=== PATIENT | male | born 1990 | race Caucasian/White ===

== ENCOUNTER 2018-06-13 10:48 | Emergency (ER) | payer OTHER ==
[~2018-06-13] VITALS: Ht 182.9 cm; Wt 90.7 kg
[~2018-06-13 10:48] MED LIST: MOTRIN800 MG PO; PERCOCET 325 MG1 TA2 PO
--- NOTE | 2018-06-13 11:03 | ED MVC/FALL/TRAUMA COMPLAINT ---
History of Present Illness General Chief Complaint: General Adult Stated Complaint: BIBA ?SHOULDER DISLOCATION Source: patient Exam Limitations: no limitations Vital Signs & Intake/Output Vital Signs & Intake/Output Vital Signs Date Time Temp Pulse Resp B/P B/P Pulse O2 O2 Flow FiO2 Mean Ox Delivery Rate 06/13 1305 97.1 71 15 125/75 99 Room Air Room Air 06/13 1250 97.2 67 15 124/79 98 Room Air Room Air 06/13 1212 63 15 147/92 100 Nasal 2.0L Cannula 06/13 1208 55 15 143/92 100 Nasal 2.0L Cannula 06/13 1152 52 20 151/84 99 Nasal 2.0L Cannula 06/13 1135 74 20 143/98 96 Room Air 06/13 1107 Room Air Room Air 06/13 1052 97.1 71 20 143/101 98 Room Air Allergies Coded Allergies: No Known Allergies (06/13/18) Reconcile Medications Ibuprofen (Motrin) 800 MG TAB 1 TAB PO TID PAIN OXYCODONE HCL/ACETAMINOPHEN (Percocet 5-325 MG Tablet) 325 MG/5 MG TAB 1-2 TAB PO Q4-6 PRN PRN PAIN Triage Nurses Notes Reviewed? yes HPI: 27-year-old male with no significant past medical history presented to the emergency department for a fall leading to right shoulder severe pain and dislocation 1 day. Patient was in his usual state of health when he had a fall at work. He ended up dislocating his right shoulder and severe pain (10/10, sharp stabbing pain, comes and goes). Does not report any numbness or tingling in the fingers. Does not complain of loss of power in the right hand. Does not report tenderness or pain in his neck. Does not complain of falling down on the head, trauma elsewhere on the body. In Sep, 2015 he presented to the emergency department for the same right shoulder dislocation. (Chapo MONTOYA,Jayla) Past History Travel History Traveled to [place] past 21 day No Medical History Any Pertinent Medical History? see below for history Neurological: NONE EENT: NONE Cardiovascular: NONE Respiratory: NONE Gastrointestinal: NONE Hepatic: NONE Renal: NONE Musculoskeletal: SHOULDER DISLOCATION Psychiatric: NONE Endocrine: NONE Blood Disorders: NONE Cancer(s): NONE Surgical History Surgical History: non-contributory Psychosocial History What is your primary language Chinese Tobacco Use: Current Not Daily ETOH Use: occasional use Illicit Drug Use: denies illicit drug use Family History Hx Contributory? Yes (Jayla Cowan MD) Review of Systems Review of Systems Constitutional: Reports: no symptoms. Eyes: Reports: no symptoms. Ears, Nose, Throat, Mouth: Reports: no symptoms. Respiratory: Reports: no symptoms. Cardiovascular: Reports: no symptoms. Gastrointestinal/Abdominal: Reports: no symptoms. Genitourinary: Reports: no symptoms. Musculoskeletal: Reports: see HPI. Skin: Reports: no symptoms. Neurological/Psychological: Reports: no symptoms. All Other Systems: Reviewed and Negative (Jayla Cowan MD) Physical Exam Physical Exam General Appearance: well developed/nourished, no apparent distress, alert, awake , moderate distress Head: atraumatic Eyes: Bilateral: normal appearance. Ears, Nose, Throat, Mouth: hearing grossly normal, moist mucous membrane Neck: normal inspection, supple, no midline tenderness Respiratory: normal breath sounds, lungs clear Cardiovascular: regular rate/rhythm Peripheral Pulses: 4+ radial (R), 4+ radial (L) Gastrointestinal: normal bowel sounds, soft, non-tender Extremities: evidence of injury, bony-point tenderness, injury present, limited range of motion, pain with movement, tenderness, Anterior shoulder dislocation, no sensory deficits in fingers , power not checked due to severe pain Neurologic/Psych: no motor/sensory deficits, awake, alert, oriented x 3 Core Measures ACS in differential dx? No CVA/TIA Diagnosis No Sepsis Present: No Sepsis Focused Exam Completed? Yes (Jayla Cowan MD) Progress Differential Diagnosis: Rt shoulder anterior dislocation Plan of Care: Orders Procedure Date/time Status Durable Medical Equipment 06/13 1250 Active XRY-SHOULDER COMPLETE-RIGHT 06/13 1222 Active Current Medications Sig/Susana Start time Last Medication Dose Stop Time Status Admin Non-Formulary 0 SEE ADMIN CRITERIA 06/13 1230 CAN Medication (NON FORMULARY) Propofol 50 MG ONCE ONE 06/13 1200 CAN (DIPRIVAN) 06/14 1201 N/A 1 UNIT (No Carrier) Non-Formulary 0 SEE ADMIN CRITERIA 06/13 1145 CAN Medication (NON FORMULARY) Propofol 50 MG ONCE 06/13 0000 NR (Diprivan Inj 10MG/ 06/13 2359 Ml 20ML Amp) Propofol 40 MG ONCE 06/13 0000 NR (Diprivan Inj 10MG/ 06/13 2359 Ml 20ML Amp) (Chapo MONTOYA,Jayla) Diagnostic Imaging: Viewed by Me: Radiology Read. Discussed w/RAD: Radiology Read. Radiology Impression: PATIENT: AUBREY WILSON PRESENT AGE: 27 PATIENT ACCOUNT NO: [id number] : 92 LOCATION: [facility] ORDERING PHYSICIAN: Jayla Cowan MD SERVICE DATE: 06/13/18 EXAM TYPE: RAD - XRY-SHOULDER COMPLETE-RIGHT EXAMINATION: XR SHOULDER, RIGHT CLINICAL INFORMATION: Dislocated shoulder following fall. Pain. COMPARISON: Right shoulder 09/17/2015 TECHNIQUE: Right shoulder is imaged in 3 views. FINDINGS: There is anterior subcoracoid dislocation right shoulder. No visible fracture. Acromioclavicular alignment within normal. Right lung appears clear. IMPRESSION: Anterior subcoracoid dislocation right shoulder. No visible fracture. DICTATED BY: Federico Oviedo MD DATE/TIME DICTATED:06/13/181130 TRUCK DRIVER RUBBISH COLLECTOR: RADHA DATE/TIME TRANSCRIBED:06/13/181130 CONFIDENTIAL, DO NOT COPY WITHOUT APPROPRIATE AUTHORIZATION. <Electronically signed in Other Vendor System> SIGNED BY: Federico Oviedo MD 06/13/181136, REPEAT XRAY SHOW REDUCTION (Oscar Chen MD) Departure Departure Disposition: HOME OR SELF CARE Condition: Stable Clinical Impression Primary Impression: Dislocation closed, shoulder Departure Forms: Customer Survey General Discharge Information (Jayla Cowan MD) Departure Referrals: Melba MONTOYA,Diamond (PCP/Family) Pa MONTOYA,Derrick Additional Instructions: KEEP SLING ON UNTIL CLEARED BY ORTHO RETURN IF SYMPTOMS WORSEN OR FOR ANY CONCERNS (Oscar Chen MD) Procedures Splinting Location: RIGHT SHOULDER Manual Alignment Performed: Yes Pre-Made Type: SHOULDER IMMOBILIZER Splint: SHOULDER IMMOBILIZER Splint Applied By: splint applied by me Pre-Proc Neuro Vasc Exam: normal Post-Proc Neuro Vasc Exam: normal Joint Reduction Joint Reduction Site: shoulder (R) Conscious Sedation: conscious sedation, performed by me Reduction Attempts: 1 Pre-Procedure NV Exam: Yes Post-Procedure NV Exam: Yes Post Joint Reduction Film: joint reduced, no fracture seen (Oscar Chen MD) ED Attending Observation Initial Observation Note: I have seen and personally examined AUBREY WILSON on 06/13/18 at 1140. I agree with the current emergency department documentation. The disposition (admission or discharge) is uncertain at this time, he needs a period of observation for the following reason(s): [Rt anterior shoulder dislocation s/p fall] The ED Nurse caring for this patient has been personally informed as to what the patient is being observed for. (Chapo MONTOYA,Jayla)
--- NOTE | 2018-06-13 11:37 | RADIOLOGY REPORT ---
EXAMINATION: XR SHOULDER, RIGHT CLINICAL INFORMATION: Dislocated shoulder following fall. Pain. COMPARISON: Right shoulder 09/17/2015 TECHNIQUE: Right shoulder is imaged in 3 views. FINDINGS: There is anterior subcoracoid dislocation right shoulder. No visible fracture. Acromioclavicular alignment within normal. Right lung appears clear. IMPRESSION: Anterior subcoracoid dislocation right shoulder. No visible fracture.
[2018-06-13 13:05] VITALS: BP 125/75
--- NOTE | 2018-06-13 13:34 | RADIOLOGY REPORT ---
EXAMINATION: XR SHOULDER, RIGHT CLINICAL INFORMATION: Post reduction. COMPARISON: Prereduction films from earlier today and older films from to 09/17/2015. TECHNIQUE: Three views of the right shoulder. FINDINGS: There has been interval reduction of the previously seen anterior subluxation of the humeral head. The humeral head is now normally located within the glenoid. No definite fracture is appreciated. The acromioclavicular joint and coracoclavicular distances are intact. Right clavicle and included portions of right ribs are intact. IMPRESSION: Successful reduction of previously seen anterior subluxation of the humeral head. No fracture seen.
== END 2018-06-13 13:54 ==
LOC: ERH 10:48
DX: S43.004A Unspecified dislocation of right shoulder joint, initial encounter (principal); W19.XXXA Unspecified fall, initial encounter; Y92.89 Other specified places as the place of occurrence of the external cause; Y93.9 Activity, unspecified
CPT/HCPCS: 73030-RT; 96361; 96374; 96375; J3490